=== PATIENT | female | born 1985 ===

== ENCOUNTER 2019-11-30 06:35 | Day surgery (SDC) | payer MEDICAID ==
[~2019-11-30 06:35] MED LIST: Lactated Ringers 1,000 ML IV SCH; Sodium Chloride 0.9% 10 ML SDV IV PRN; Sodium Chloride 0.9% 10 ML Syringe FLUSH PRN; Sodium Chloride 0.9% 2.5 ML Syringe FLUSH PRN
[2019-11-30] MEDS ORDERED: Propofol 200 MG/20 ML SDV ONE ×2 (06:59→08:17)
[2019-11-30] MEDS ORDERED: fentaNYL 100 MCG/2 ML SDV ONE (06:59)
[2019-11-30] MEDS ORDERED: Midazolam 1 MG/ML 2 ML SDV ONE ×2 (07:00→07:19)
[2019-11-30] MEDS ORDERED: Lidocaine 2% 5 ML SDV ONE (07:01)
[2019-11-30] MEDS ORDERED: Glycopyrrolate 0.2 MG/ML SDV ONE (07:01)
[2019-11-30] MEDS ORDERED: Midazolam 1 MG/ML 2 ML SDV IVPUSH ONE (07:14)
--- NOTE | 2019-11-30 07:29 | PCM.PREANE ---
Preanesthetic Assessment - Anesthesia/Transfusion/Family Hx Anesthesia History: Prior Anesthesia Without Reaction Other Type of Anesthesia Reaction Comment: denies any problems with anesthesia Family History of Anesthesia Reaction: No Intubation History: Unknown - Review of Systems General: No Symptoms Pulmonary: No Symptoms Cardiovascular: No Symptoms Gastrointestinal: Abdominal Pain Neurological: No Symptoms Other: Reports: None - Physical Assessment Height: 5 ft 4 in Weight: 65.317 kg ASA Class: 2 Mental Status: Alert & Oriented x3 Airway Class: Mallampati = 2 Dentition: Reports: Normal Dentition Thyro-Mental Finger Breadths: 3 Mouth Opening Finger Breadths: 3 ROM/Head Extension: Full Lungs: Clear to Auscultation, Normal Respiratory Effort Cardiovascular: Regular Rate, Regular Rhythm - Lab Values: Laboratory Last Values Urine HCG, Qual NEGATIVE (NEGATIVE) 11/30/19 06:45 - Allergies Allergies/Adverse Reactions: Allergies Allergy/AdvReac Type Severity Reaction Status Date / Time Penicillins Allergy Vomiting Verified 11/23/19 09:38 - Blood Blood Available: No - Anesthesia Plan Pre-Op Medication Ordered: None - Acknowledgements Anesthesia Type Planned: MAC Pt an Appropriate Candidate for the Planned Anesthesia: Yes Alternatives and Risks of Anesthesia Discussed w Pt/Guardian: Yes Pt/Guardian Understands and Agrees with Anesthesia Plan: Yes PreAnesthesia Questionnaire HEENT History: Reports: Other (See Below) Other HEENT History: states is legally blind, does not wear glasses Cardiovascular History: Reports: None Respiratory History: Reports: Asthma (mild/moderate) Gastrointestinal History: Reports: Gastritis, GERD Genitourinary History: Reports: Renal Calculus 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: Musculoskeletal History: Reports: Arthritis, Fibromyalgia Other Musculoskeletal History: fx left wrist Neurological History: Reports: Migraines, TIA Other Neuro History: TIA at age 27- droopy face, weak left arm,speech problems,balance problems- all lasted 2 minutes followed by 2 day migrain (severe) Psychiatric History: Reports: Anxiety, Depression (major), PTSD Endocrine/Metabolic History: Reports: None Hematologic History: Reports: None Immunologic History: Reports: None Oncologic (Cancer) History: Reports: None Dermatologic History: Reports: Cellulitis - Past Surgical History Head Surgeries/Procedures: Reports: None HEENT Surgical History: Reports: Adenoidectomy, Naso-Sinus Surgery Cardiovascular Surgical History: Reports: None Respiratory Surgical History: Reports: None GI Surgical History: Reports: EGD (x2, last one 2 years ago) Female Surgical History: Reports: None Endocrine Surgical History: Reports: None Neurological Surgical History: Reports: None Musculoskeletal Surgical History: Reports: None Oncologic Surgical History: Reports: None Dermatological Surgical History: Reports: None - SUBSTANCE USE Smoking Status *Q: Current Some Day Smoker Tobacco Use Within Last Twelve Months: Cigarettes Days Per Week of Alcohol Use: 7 Number of Drinks Per Day: 8 Total Drinks Per Week: 56 Recreational Drug Type: Reports: Marijuana/Hashish, Other (see below) (h/o pain killer abuse and ETOH abuse, did not drink since wednesday- very anxious with high blood pressure) - HOME MEDS Home Medications: Home Meds Albuterol [Proventil HFA] 1 - 2 puff INH Q4HR PRN 04/25/14 [History] Albuterol [Proventil Neb Soln] 1 dose IH ASDIRECTED PRN 04/25/14 [History] Fluticasone/Salmeterol [Advair 250-50] 1 puff INH BID PRN 04/25/14 [History] Omeprazole [Prilosec] 20 mg PO DAILY 04/25/14 [History] Ondansetron [Zofran] 4 mg PO TID PRN 04/25/14 [History] Copper [Paragard T 380-A] 1 device VAG ONETIME 11/23/19 [History] Fluticasone/Salmeterol [Advair 250-50] 1 puff INH BID 11/23/19 [History] Ibuprofen 800 mg PO TID PRN 11/23/19 [History] L.acidoph,Paracasei, B.lactis [Probiotic] 1 tab PO DAILY 11/23/19 [History] Potassium Chloride 10 meq PO DAILY 11/23/19 [History] - CURRENT (IN HOUSE) MEDS Current Meds: Current Medications Lactated Ringer's (Ringers, Lactated) 1,000 mls @ 125 mls/hr IV ASDIRECTED TIMO Last Admin: 11/30/19 07:00 Dose: 125 mls/hr Documented by: Sodium Chloride (Saline Flush) 10 ml FLUSH ASDIRECTED PRN PRN Reason: Keep Vein Open Sodium Chloride (Saline Flush) 2.5 ml FLUSH ASDIRECTED PRN PRN Reason: Keep Vein Open Sodium Chloride (Saline Flush) 10 ml FLUSH ASDIRECTED PRN PRN Reason: Keep Vein Open Sodium Chloride (Saline Flush) 2.5 ml FLUSH ASDIRECTED PRN PRN Reason: Keep Vein Open Sodium Chloride (Normal Saline) 10 ml IV ASDIRECTED PRN PRN Reason: IV Use Discontinued Medications Fentanyl (Sublimaze) Confirm Administered Dose 100 mcg .ROUTE .STK-MED ONE Stop: 11/30/19 07:00 Glycopyrrolate (Robinul) Confirm Administered Dose 0.2 mg .ROUTE .STK-MED ONE Stop: 11/30/19 07:02 Lidocaine (Xylocaine-Mpf 2%) Confirm Administered Dose 5 ml .ROUTE .STK-MED ONE Stop: 11/30/19 07:02 Midazolam HCl (Versed 1 Mg/Ml) Confirm Administered Dose 2 mg .ROUTE .STK-MED ONE Stop: 11/30/19 07:01 Midazolam HCl (Versed 1 Mg/Ml) 2 mg IVPUSH ONETIME ONE Stop: 11/30/19 07:15 Midazolam HCl (Versed 1 Mg/Ml) Confirm Administered Dose 2 mg .ROUTE .STK-MED ONE Stop: 11/30/19 07:20 Propofol (Diprivan 20 Ml) Confirm Administered Dose 200 mg .ROUTE .STK-MED ONE Stop: 11/30/19 07:00
--- NOTE | 2019-11-30 08:21 | PCM.OPNOTE ---
- General Post-Op/Procedure Note Date of Surgery/Procedure: 11/30/19 Operative Procedure(s): Diagostic EGD with biopsy Findings: Hiatal hernia, gastritis Pre Op Diagnosis: History of chronic gastritis, dysphagia Post-Op Diagnosis: Hiatal hernia, chronic gastritis Anesthesia Technique: [facility] [place] Surgeon: Flori Velazquez Condition: Good
--- NOTE | 2019-11-30 08:38 | PCM.POSTAN ---
POST ANESTHESIA ASSESSMENT - MENTAL STATUS Mental Status: Alert, Oriented - VITAL SIGNS Vital Signs: Last Vital Signs Temp 36.4 C 11/30/19 06:45 Pulse 100 11/30/19 08:34 Resp 14 11/30/19 08:34 BP 128/92 H 11/30/19 08:34 Pulse Ox 95 11/30/19 08:34 - RESPIRATORY Respiratory Status: Respiratory Rate WNL, Airway Patent, O2 Saturation Stable - CARDIOVASCULAR CV Status: Pulse Rate WNL, Blood Pressure Stable - GASTROINTESTINAL GI Status: No Symptoms - PAIN Pain Score: 0 - POST OP HYDRATION Hydration Status: Adequate & Stable - OBSERVATIONS Free Text/Narrative:: No anesthesia problems
--- NOTE | 2019-11-30 09:09 | PCM48HPAN ---
Post Anesthesia Note - EVALUATION WITHIN 48HRS OF ANESTHETIC Vital Signs in Normal Range: Yes Patient Participated in Evaluation: Yes Respiratory Function Stable: Yes Airway Patent: Yes Cardiovascular Function Stable: Yes Hydration Status Stable: Yes Pain Control Satisfactory: Yes Nausea and Vomiting Control Satisfactory: Yes Mental Status Recovered: Yes Vital Signs: Last Vital Signs Temp 36.7 C 11/30/19 08:38 Pulse 97 11/30/19 08:38 Resp 97 H 11/30/19 08:38 BP 122/89 11/30/19 08:38 Pulse Ox 97 11/30/19 08:38 - COMMENTS/OBSERVATIONS Free Text/Narrative:: No anesthesia problems
--- NOTE | 2019-11-30 15:58 | OR ---
SURGEON: FLORI VELAZQUEZ MD DATE OF PROCEDURE: 11/30/2019 PREOPERATIVE DIAGNOSES: Dysphagia, history of chronic gastritis. POSTOPERATIVE DIAGNOSES: Hiatal hernia, gastritis. PROCEDURE PERFORMED: Diagnostic esophagogastroduodenoscopy with biopsy. PRIMARY SURGEON: Flori Velazquez MD ANESTHESIA: MAC. INSTRUMENT USED: Olympus endoscope. EXTENT OF EXAM: To the second portion of duodenum. PREPARATION: Good. LIMITATIONS: None. INDICATIONS FOR EXAMINATION: The patient is a 33-year-old female who presents with dysphagia. She has a history of chronic gastritis. The decision was made to proceed with a diagnostic EGD. I explained the procedure, expected perioperative course, and risks. The patient verbalized understanding and wishes to proceed. PROCEDURE IN DETAIL: The patient was brought into the endoscopy suite and placed in a beach chair position. A time-out was completed verifying the patient's name, age, date of , allergies, and procedure to be performed. Monitored anesthesia care was induced and continuous oxygen was provided via nasal cannula throughout the procedure. After adequate sedation was achieved, a well-lubricated endoscope was placed through the patient's bite block into the back of the throat and advanced under direct visualization to the level of the second portion of duodenum. This appeared normal and a photograph was taken. The scope was then straightened out and fully withdrawn while examining the color, texture, anatomy, and integrity of the mucosa of the upper GI tract. The patient's duodenum appeared normal. The scope was brought into the stomach and photograph was taken of the pylorus and GE junction. The patient was noted to have a hiatal hernia. The antral mucosa appeared somewhat reddened, consistent with her history of chronic gastritis. Biopsies were taken of the gastric antrum, body, and fundus and sent for histologic review and H. pylori testing. No evidence of peptic ulcer disease was noted. The scope was brought into the distal esophagus and a photograph was taken of the hiatal hernia and the Z-line. Overall, the Z-line appeared normal with no evidence of irregularities. The distal esophageal mucosa appeared normal as well, however, a biopsy was taken 1 cm above the Z-line and sent to pathology labeled as esophageal biopsy. The remainder of the esophageal mucosa appeared free of pathology. The scope was removed and the procedure terminated. The patient tolerated the procedure well and was transferred to the PACU in stable condition. ENDOSCOPIC DIAGNOSES: Hiatal hernia, gastritis. RECOMMENDATIONS: The patient will undergo an esophagram later this week. I will see the patient in 2 weeks to discuss her biopsy results as well as the results of the radiology test and determine any next steps in treatment. JAMISON MUNOZ /[id number]
== END 2019-11-30 09:15 | disposition home or self-care (01) ==
LOC: MW.SDS 06:35
PROVIDERS: ATTEND Surgery
DX: K29.50 Unspecified chronic gastritis without bleeding (principal); K44.9 Diaphragmatic hernia without obstruction or gangrene; J45.909 Unspecified asthma, uncomplicated; K21.9 Gastro-esophageal reflux disease without esophagitis; F41.9 Anxiety disorder, unspecified; F32.9 Major depressive disorder, single episode, unspecified; K82.4 Cholesterolosis of gallbladder; G47.00 Insomnia, unspecified; Z79.899 Other long term (current) drug therapy; Z87.891 Personal history of nicotine dependence; Z88.0 Allergy status to penicillin
CPT/HCPCS: 43239; 81025; J2001; J2250; J2704; J3010; J3490; J7120; 00731; 88305; 88312

== ENCOUNTER 2019-12-07 06:29 | Day surgery (SDC) | payer MEDICAID ==
[~2019-12-07 06:29] MED LIST changes: +Clindamycin Phosphate in D5W 50 ML ONE; +Clindamycin Phosphate in D5W 600 MG in Premix Bag 1 BAG IV ONE
[2019-12-07] MEDS ORDERED: fentaNYL 250 MCG/5 ML SDV ONE (07:05)
[2019-12-07] MEDS ORDERED: Midazolam 1 MG/ML 2 ML SDV ONE ×2 (07:05→08:35)
[2019-12-07] MEDS ORDERED: Propofol 200 MG/20 ML SDV ONE (07:05)
[2019-12-07] MEDS ORDERED: Dexamethasone 4 MG/ML 5 ML MDV ONE (07:12)
[2019-12-07] MEDS ORDERED: Ondansetron 4 MG/2 ML SDV ONE (07:12)
[2019-12-07] MEDS ORDERED: Rocuronium Bromide 50 MG/5 ML Syringe ONE (07:12)
[2019-12-07] MEDS ORDERED: Clindamycin Phosphate in D5W 600 MG in Premix Bag 1 BAG IV ONE ×2 (07:15)
[2019-12-07] MEDS ORDERED: Lactated Ringers 1,000 ML IV SCH (07:15)
[2019-12-07] MEDS ORDERED: Bupivacaine 0.5% 30 ML SDV ONE (07:23)
--- NOTE | 2019-12-07 07:25 | PCM.PREANE ---
Preanesthetic Assessment - Anesthesia/Transfusion/Family Hx Anesthesia History: Prior Anesthesia Without Reaction Other Type of Anesthesia Reaction Comment: denies any problems with anesthesia Family History of Anesthesia Reaction: No Transfusion History: No Prior Transfusion(s) Intubation History: Unknown - Review of Systems General: No Symptoms Pulmonary: No Symptoms Cardiovascular: No Symptoms Gastrointestinal: Abdominal Pain Neurological: No Symptoms Other: Reports: None - Physical Assessment Vital Signs: Last Vital Signs Temp 36.5 C 12/07/19 07:20 Pulse 78 12/07/19 07:20 Resp 18 12/07/19 07:20 BP 110/70 12/07/19 07:20 Pulse Ox 96 12/07/19 07:20 Height: 5 ft 4 in Weight: 65.317 kg ASA Class: 2 Mental Status: Alert & Oriented x3 Airway Class: Mallampati = 1 Dentition: Reports: Normal Dentition Thyro-Mental Finger Breadths: 3 Mouth Opening Finger Breadths: 3 ROM/Head Extension: Full Lungs: Clear to Auscultation, Normal Respiratory Effort Cardiovascular: Regular Rate, Regular Rhythm - Lab Values: Laboratory Last Values Urine HCG, Qual NEGATIVE (NEGATIVE) 12/07/19 06:45 - Allergies Allergies/Adverse Reactions: Allergies Allergy/AdvReac Type Severity Reaction Status Date / Time Penicillins Allergy Vomiting Verified 12/07/19 07:11 - Blood Blood Available: No - Anesthesia Plan Pre-Op Medication Ordered: None - Acknowledgements Anesthesia Type Planned: General Anesthesia Pt an Appropriate Candidate for the Planned Anesthesia: Yes Alternatives and Risks of Anesthesia Discussed w Pt/Guardian: Yes Pt/Guardian Understands and Agrees with Anesthesia Plan: Yes PreAnesthesia Questionnaire HEENT History: Reports: Other (See Below) Other HEENT History: states is legally blind, does not wear glasses Cardiovascular History: Reports: None Respiratory History: Reports: Asthma Gastrointestinal History: Reports: Gastritis, GERD Genitourinary History: Reports: Renal Calculus 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: Musculoskeletal History: Reports: Arthritis, Fibromyalgia Other Musculoskeletal History: fx left wrist Neurological History: Reports: Migraines, TIA Other Neuro History: TIA at age 27- droopy face, weak left arm,speech problems,balance problems- all lasted 2 minutes followed by 2 day migrain (severe) Psychiatric History: Reports: Anxiety, Depression, PTSD Endocrine/Metabolic History: Reports: None Hematologic History: Reports: None Immunologic History: Reports: None Oncologic (Cancer) History: Reports: None Dermatologic History: Reports: Cellulitis - Past Surgical History Head Surgeries/Procedures: Reports: None HEENT Surgical History: Reports: Adenoidectomy, Naso-Sinus Surgery Cardiovascular Surgical History: Reports: None Respiratory Surgical History: Reports: None GI Surgical History: Reports: EGD (x2, last one last week here) Endocrine Surgical History: Reports: None Neurological Surgical History: Reports: None Musculoskeletal Surgical History: Reports: None Oncologic Surgical History: Reports: None Dermatological Surgical History: Reports: None - SUBSTANCE USE Smoking Status *Q: Current Some Day Smoker Tobacco Use Within Last Twelve Months: Cigarettes Days Per Week of Alcohol Use: 7 Number of Drinks Per Day: 8 Total Drinks Per Week: 56 Recreational Drug Type: Reports: Marijuana/Hashish - HOME MEDS Home Medications: Home Meds Albuterol [Proventil HFA] 1 - 2 puff INH Q4HR PRN 04/25/14 [History] Albuterol [Proventil Neb Soln] 1 dose IH ASDIRECTED PRN 04/25/14 [History] Fluticasone/Salmeterol [Advair 250-50] 1 puff INH BID 04/25/14 [History] Omeprazole [Prilosec] 20 mg PO DAILY 04/25/14 [History] Ondansetron [Zofran] 4 mg PO TID PRN 04/25/14 [History] Copper [Paragard T 380-A] 1 device VAG ONETIME 11/23/19 [History] Ibuprofen 800 mg PO TID PRN 11/23/19 [History] L.acidoph,Paracasei, B.lactis [Probiotic] 1 tab PO DAILY 11/23/19 [History] Potassium Chloride 10 meq PO DAILY 11/23/19 [History] Patient's Own Medication [Ptom] 1 each INH ASDIRECTED PRN 12/07/19 [History] - CURRENT (IN HOUSE) MEDS Current Meds: Current Medications Clindamycin Phosphate 600 mg/ (Premix) 50 mls @ 100 mls/hr IV ONETIME ONE Stop: 12/07/19 07:44 Lactated Ringer's (Ringers, Lactated) 1,000 mls @ 125 mls/hr IV ASDIRECTED TIMO Last Admin: 12/07/19 07:18 Dose: 125 mls/hr Documented by: Sodium Chloride (Normal Saline) 10 ml IV ASDIRECTED PRN PRN Reason: IV Use Sodium Chloride (Saline Flush) 10 ml FLUSH ASDIRECTED PRN PRN Reason: Keep Vein Open Sodium Chloride (Saline Flush) 2.5 ml FLUSH ASDIRECTED PRN PRN Reason: Keep Vein Open Discontinued Medications Dexamethasone (Dexamethasone) Confirm Administered Dose 20 mg .ROUTE .STK-MED O NE Stop: 12/07/19 07:13 Fentanyl (Sublimaze) Confirm Administered Dose 250 mcg .ROUTE .STK-MED ONE Stop: 12/07/19 07:06 Clindamycin Phosphate 600 mg/ (Premix) 50 mls @ 100 mls/hr IV ONETIME ONE Stop: 12/03/19 23:52 Clindamycin Phosphate (Cleocin In D5w) Confirm Administered Dose 50 mls @ as directed .ROUTE .STK-MED ONE Stop: 12/07/19 06:27 Midazolam HCl (Versed 1 Mg/Ml) Confirm Administered Dose 2 mg .ROUTE .STK-MED ONE Stop: 12/07/19 07:06 Ondansetron HCl (Zofran) Confirm Administered Dose 4 mg .ROUTE .STK-MED ONE Stop: 12/07/19 07:13 Propofol (Diprivan 20 Ml) Confirm Administered Dose 400 mg .ROUTE .STK-MED ONE Stop: 12/07/19 07:06 Rocuronium Ewing (Rocuronium Ewing) Confirm Administered Dose 50 mg .ROUTE .STK-MED ONE Stop: 12/07/19 07:13
[2019-12-07] MEDS ORDERED: Ketamine 500 mg/10 ML MDV ONE (08:35)
[2019-12-07] MEDS ORDERED: HYDROmorphone 2 MG/ML Syringe ONE (08:48)
[2019-12-07] MEDS ORDERED: Glycopyrrolate 0.2 MG/ML SDV ONE (09:44)
[2019-12-07] MEDS ORDERED: Ketorolac 30 MG/ML SDV ONE (09:45)
[2019-12-07] MEDS ORDERED: Acetaminophen/oxyCODONE 325-5 MG Tab PO PRN (10:06)
--- NOTE | 2019-12-07 10:13 | PCM.OPNOTE ---
- General Post-Op/Procedure Note Date of Surgery/Procedure: 12/07/19 Operative Procedure(s): Laparoscopic cholecystectomy, lysis of adhesions Findings: Adhesions of gallbladder to surrounding omentum, otherwise normal appearing gallbladder Pre Op Diagnosis: Gallbladder polyp, epigastric pain Post-Op Diagnosis: same Anesthesia Technique: General ET Tube Primary Surgeon: Flori Velazquez Pathology: gallbladder Fluid Replacement, Intraop: 1,700 Output, Urine Amount: 150 EBL in mLs: 5 Condition: Good
--- NOTE | 2019-12-07 10:53 | PCM.POSTAN ---
POST ANESTHESIA ASSESSMENT - MENTAL STATUS Mental Status: Alert, Oriented - VITAL SIGNS Vital Signs: Last Vital Signs Temp 36.2 C 12/07/19 10:04 Pulse 75 12/07/19 10:49 Resp 15 12/07/19 10:49 BP 101/68 12/07/19 10:49 Pulse Ox 94 L 12/07/19 10:49 - RESPIRATORY Respiratory Status: Respiratory Rate WNL, Airway Patent, O2 Saturation Stable - CARDIOVASCULAR CV Status: Pulse Rate WNL, Blood Pressure Stable - GASTROINTESTINAL GI Status: No Symptoms - PAIN Pain Score: 2 - POST OP HYDRATION Hydration Status: Adequate & Stable
--- NOTE | 2019-12-07 12:26 | PCM48HPAN ---
Post Anesthesia Note - EVALUATION WITHIN 48HRS OF ANESTHETIC Vital Signs in Normal Range: Yes Patient Participated in Evaluation: Yes Respiratory Function Stable: Yes Airway Patent: Yes Cardiovascular Function Stable: Yes Hydration Status Stable: Yes Pain Control Satisfactory: Yes Nausea and Vomiting Control Satisfactory: Yes Mental Status Recovered: Yes Vital Signs: Last Vital Signs Temp 36.2 C 12/07/19 10:04 Pulse 75 12/07/19 10:49 Resp 15 12/07/19 10:49 BP 101/68 12/07/19 10:49 Pulse Ox 94 L 12/07/19 10:49 - COMMENTS/OBSERVATIONS Free Text/Narrative:: No anesthesia problems
--- NOTE | 2019-12-07 16:38 | OR ---
SURGEON: FLORI MARLEY MD DATE OF PROCEDURE: 12/07/2019 PREOPERATIVE DIAGNOSIS: Gallbladder polyp. POSTOPERATIVE DIAGNOSES: Gallbladder polyp and intraabdominal adhesions. PROCEDURES PERFORMED: Laparoscopic cholecystectomy and lysis of adhesions. PRIMARY SURGEON: Flori Marley MD ANESTHESIA: General endotracheal anesthesia. FLUIDS: 1700 mL of crystalloid. ESTIMATED BLOOD LOSS: 5 mL. URINE OUTPUT: 150 mL. FINDINGS: Normal-appearing gallbladder; however, there were adhesions to the surrounding omentum. COMPLICATIONS: None. INDICATIONS: The patient is a 33-year-old female who presents with abdominal pain. Imaging several years ago showed a possible gallbladder polyp in the mid body of the gallbladder. A recent ultrasound showed the gallbladder polyps to appear slightly larger at 6 mm. The decision was made to perform a cholecystectomy. I explained the procedure. I would perform it laparoscopically, but convert to open should I be unable to perform it safely. I explained the expected perioperative course as well as the risks including bleeding, infection, or damage to surrounding structures. The patient verbalized understanding and wishes to proceed. PROCEDURE IN DETAIL: The patient was brought into the OR and placed on the OR table in supine position. A time-out was completed, verifying the patient's name, age, date of , allergies, and procedure to be performed. General endotracheal anesthesia was induced. The left arm was tucked to the patient's side and a Grant catheter placed. The abdomen was prepped and draped in usual standard fashion. The infraumbilical fold was anesthetized with 0.5% Marcaine plain. An 11 blade was used to make an incision along the infraumbilical fold. Cautery was used to dissect down into the level of the subcutaneous fat. I bluntly dissected down to the fascia. The fascia was elevated with Alea's and incised sharply with curved Rayo scissors. The posterior rectus sheath and peritoneum were grasped with hemostats and incised sharply with curved Rayo scissors. On entering, the abdomen was palpated digitally. Stay sutures were placed on either side of the fascia using 0 Vicryl suture. A 12 mm Angelika trocar was inserted in the abdomen and the abdomen was insufflated. I inserted a 5-mm 30- degree scope and inspected the area underneath my initial trocar placement. No damage to surrounding structures was noted. The patient was placed into reverse Trendelenburg position and air-planed slightly to the left. 5 mm trocars were placed in the following locations under direct visualization; one in the epigastric area, one in the right flank, and one 2 fingerbreadths below the right subcostal margin in the midclavicular line. The dome of the gallbladder was grasped. I noted there to be adhesions of the anterior gallbladder wall to the surrounding omentum. These were taken down using blunt dissection and hook cautery. The infundibulum was grasped, and I began my dissection along the cystic duct and artery. I could clearly see my right hepatic artery coming up into the field. This was gently swept down. I then dissected out my cystic duct and artery. The node of Calot was noted. I dissected one-third of the way up the cystic plate. Once my critical view was achieved, I doubly clipped and ligated my cystic duct and artery. Using a hook cautery, I then took down the remainder of the attachments of the gallbladder to the gallbladder fossa. The gallbladder was then placed in an Endo Catch bag and removed through the infraumbilical port site. I reinserted my trocar and inspected my operative field. It was hemostatic, and there was no evidence of bile leakage. My clips appeared to be in good position. The 5 mm trocars were removed under direct visualization, and the abdomen allowed to desufflate. The 12 mm trocar was removed as well. The fascia at the infraumbilical port site was closed with interrupted 0 Vicryl sutures. The subcutaneous fat layer was closed with interrupted 3-0 Vicryl sutures. The skin was closed with a running 4-0 Monocryl stitch. Interrupted 4-0 Monocryl sutures were used to close the 5 mm trocar sites. Steri-Strips and sterile dressings were applied. The patient tolerated the procedure well and was transferred to the PACU in stable condition. All counts were complete and correct at the end of the case. JAMISON MUNOZ /[id number]
== END 2019-12-07 13:05 | disposition home or self-care (01) ==
LOC: MW.SDS 06:29
PROVIDERS: ATTEND Surgery
DX: K81.1 Chronic cholecystitis (principal); K82.8 Other specified diseases of gallbladder; K29.50 Unspecified chronic gastritis without bleeding; K21.9 Gastro-esophageal reflux disease without esophagitis; F33.2 Major depressive disorder, recurrent severe without psychotic features; J45.909 Unspecified asthma, uncomplicated; F41.9 Anxiety disorder, unspecified; G47.00 Insomnia, unspecified; Z88.0 Allergy status to penicillin; Z79.51 Long term (current) use of inhaled steroids; Z79.899 Other long term (current) drug therapy; Z87.891 Personal history of nicotine dependence
CPT/HCPCS: 47562; 81025; J1100; J1170; J1885; J2250; J2405; J2704; J3010; J3490; J7120; 88304

== ENCOUNTER 2021-02-10 08:58 | Emergency (ER) | payer MEDICAID ==
[2021-02-10] MEDS ORDERED: Ondansetron 4 MG/2 ML SDV IVPUSH ONE (09:09)
[2021-02-10] MEDS ORDERED: Dextrose 5%-Lactated Ringers 1,000 ML IV SCH ×2 (10:00→14:30)
[2021-02-10 10:09] LABS: BLOOD UREA NITROGEN,BUN 4 mg/dL (7.0-18.0); CARBON DIOXIDE,CO2 25.8 mmol/L (21.0-32.0); CHLORIDE,CL 101 mmol/L (98-107); GLUCOSE RANDOM 107 mg/dL (74-106); LIPASE 48 U/L (73-393); POTASSIUM,K 2.7 mmol/L (3.5-5.1); SODIUM,NA 142 mmol/L (136-145)
[2021-02-10] MEDS ORDERED: Alum Hydrox/Mag Hydrox/Simeth 15 ML, Lidocaine 2% 5 ML PO ONE ×2 (10:12)
[2021-02-10] MEDS ORDERED: Promethazine 25 MG Tab PO STA (13:35)
[2021-02-10] MEDS ORDERED: Potassium Chloride 10% 20 MEQ/15 ML Soln 30 ML UD Cup PO ONE (13:43)
--- NOTE | 2021-02-10 13:44 | EDM.PDOC ---
ED HPI GENERAL MEDICAL PROBLEM - General Chief Complaint: Gastrointestinal Problem Stated Complaint: 9 DAYS CANT KEEP ANYTHING DOWN Time Seen by Provider: 02/10/21 09:31 - History of Present Illness INITIAL COMMENTS - FREE TEXT/NARRATIVE: CHIEF COMPLAINT(S): Vomiting HISTORY OF PRESENT ILLNESS: This is a 35-year-old woman without any significant past medical history who comes to the emergency department with a chief complain t of vomiting. The patient states that off and on for the last 9 to 10 days she has been experiencing intermittent crampy abdominal pain which she rates as 4 out of 10 and burning. She states is located in the left upper quadrant. She denies any melena, hematochezia, hematemesis or bilious emesis. There is no radiation of the pain. She states that she has been taking Zofran at home without any relief. She denies any exacerbating or relieving factors. She denies any chest pain, shortness of breath, recent travel, recent surgery or prior history of DVT or PE. She states this all began after the Pfizer shot REVIEW OF SYSTEMS: Constitutional: Denies fever, chills. Eyes: Denies eye pain Ears, Nose, Mouth, & Throat: Denies earache Cardiovascular: Denies chest pain Respiratory: Denies shortness of breath Gastrointestinal: Positive for crampy abdominal pain, nausea, vomiting. Denies diarrhea, hematochezia, hematemesis, bilious emesis Genitourinary: Denies hematuria Skin:Denies a rash MSK: Denies joint pain Neurological: Denies blurred vision Psychiatric: Denies depression PAST MEDICAL HISTORY: As per history of present illness and as reviewed below otherwise noncontributory. SURGICAL HISTORY: As per history of present illness and as reviewed below otherwise noncontributory. SOCIAL HISTORY: As per history of present illness and as reviewed below otherwise noncontributory. FAMILY HISTORY: As per history of present illness and as reviewed below otherwise noncontributory. EXAMINATION OF ORGAN SYSTEMS/BODY AREAS: Constitutional: Blood pressure is 124/92, heart rate 103, respiratory rate 18 with an oxygen saturation 95% on room air. Temperature 35.8 General: Well-appearing young woman who is in no acute distress Psychiatric: Appropriate mood and affect. Eyes: No scleral icterus or conjunctival erythema ENMT: Moist mucous membranes. No pharyngeal erythema Cardiovascular: Regular, rate, and rhythm. No gallops, murmurs, or rubs. Bilateral upper extremity pulses symmetric and intact. No peripheral edema. No JVD. Respiratory: Lungs clear to auscultation bilaterally. No wheezes, rales, or rhonchi. Gastrointestinal: Soft, nondistended, mild tenderness to palpation the left upper quadrant. No rebound or guarding. Negative Bowers's and McBurney's. Normoactive bowel sounds Genitourinary: No suprapubic tenderness Musculoskeletal: Normal range of motion. Skin: No lesions or abrasions. Neurological: Alert, GCS 15 MEDICAL DECISION MAKING AND COURSE IN THE ED WITH INTERPRETATION/REVIEW OF DIAGNOSTIC STUDIES: This is a 35-year-old woman with a out any significant past medical history who presents to the emergency department with 10 days of reported inability to tolerate p.o. with vomiting and crampy abdominal pain. At this time we will provide the patient with a GI cocktail, Zofran for nausea and 1 L of D5 LR. Will obtain labs including CBC, CMP, Covid, lipase, urinalysis. We did obtain an EKG to evaluate for prolonged QT. At this time the patient's abdomen is nonsurgical therefore we will hold off on imaging at this time. Laboratory: CBC is unremarkable. CMP reveals hypokalemia at 2.7, hyperglycemia at 107, hypocalcemia at 8.0, AST of 60, alkaline phosphatase of 161. Lipase is normal. Urinalysis is negative except for ketonuria. Covid is negative. On reevaluation the patient was able to tolerate mild amount of fluid. However she states that she was still nauseous. We will provide the patient with Phenergan and reevaluate. We will provide her with 1 additional D5 LR. On reevaluation the patient was able to tolerate p.o. At this time the patient was questing to be sent home. At this time I did discuss strict return precautions with the patient. She was amenable to discharge and had no further questions. DISPOSITION: The patient was discharged home in stable condition. The patient will follow up with primary care physician in 3 to 5 days CONDITION: Fair PROCEDURES: None FINAL IMPRESSION(S)/DIAGNOSES: 1. Acute vomiting 2. Acute abdominal pain Sajan Dumont M.D. abdomen Pain Score (Numeric/FACES): 4 - Related Data Allergies Allergy/AdvReac Type Severity Reaction Status Date / Time Penicillins Allergy Vomiting Verified 02/10/21 09:13 Home Meds: Home Meds Albuterol [Proventil HFA] 1 - 2 puff INH Q4HR PRN 04/25/14 [History] Fluticasone/Salmeterol [Advair 250-50] 1 puff INH BID 04/25/14 [History] Omeprazole [Prilosec] 20 mg PO DAILY 04/25/14 [History] Ondansetron [Zofran] 4 mg PO TID PRN 04/25/14 [History] Copper [Paragard T 380-A] 1 device VAG ONETIME 11/23/19 [History] Ibuprofen 800 mg PO TID PRN 11/23/19 [History] Patient's Own Medication [Ptom] 1 each INH ASDIRECTED PRN 12/07/19 [History] Prazosin HCl [Prazosin] 2 mg PO DAILY 02/10/21 [History] busPIRone [Buspar] 2.5 mg PO DAILY 02/10/21 [History] Past Medical History HEENT History: Reports: Other (See Below) Other HEENT History: states is legally blind, does not wear glasses Cardiovascular History: Reports: None Respiratory History: Reports: Asthma Gastrointestinal History: Reports: Gastritis, GERD Genitourinary History: Reports: Renal Calculus [employer]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: Musculoskeletal History: Reports: Arthritis, Fibromyalgia Other Musculoskeletal History: fx left wrist Neurological History: Reports: Migraines, TIA Other Neuro History: TIA at age 27- droopy face, weak left arm,speech problems,balance problems- all lasted 2 minutes followed by 2 day migrain (severe) Psychiatric History: Reports: Anxiety, Depression, PTSD Endocrine/Metabolic History: Reports: None Hematologic History: Reports: None Immunologic History: Reports: None Oncologic (Cancer) History: Reports: None Dermatologic History: Reports: Cellulitis - Infectious Disease History Infectious Disease History: Reports: Chicken Pox - Past Surgical History Head Surgeries/Procedures: Reports: None HEENT Surgical History: Reports: Adenoidectomy, Naso-Sinus Surgery Cardiovascular Surgical History: Reports: None Respiratory Surgical History: Reports: None GI Surgical History: Reports: Cholecystectomy, EGD Female Surgical History: Reports: None Endocrine Surgical History: Reports: None Neurological Surgical History: Reports: None Musculoskeletal Surgical History: Reports: None Oncologic Surgical History: Reports: None Dermatological Surgical History: Reports: None Social & Family History - Family History Family Medical History: No Pertinent Family History - Tobacco Use Tobacco Use Status *Q: Never Tobacco User - Alcohol Use Days Per Week of Alcohol Use: 7 Number of Drinks Per Day: 4 Total Drinks Per Week: 28 - Recreational Drug Use Recreational Drug Use: Yes Recreational Drug Type: Reports: Marijuana/Hashish ED ROS GENERAL - Review of Systems Review Of Systems: See Below ED EXAM, GENERAL - Physical Exam Exam: See Below Course - Vital Signs Last Recorded V/S: Last Vital Signs Temp 36.1 C 02/10/21 16:45 Pulse 106 H 02/10/21 16:45 Resp 16 02/10/21 16:45 BP 114/80 02/10/21 16:45 Pulse Ox 95 02/10/21 16:45 - Orders/Labs/Meds Labs: Laboratory Tests 02/10/21 02/10/21 02/10/21 Range/Units 09:19 09:19 09:27 WBC 5.49 (4.0-11.0) K/uL RBC 4.74 (4.30-5.90) M/uL Hgb 15.6 (12.0-16.0) g/dL Hct 44.6 (36.0-46.0) % MCV 94.1 (80.0-98.0) fL MCH 32.9 H (27.0-32.0) pg MCHC 35.0 (31.0-37.0) g/dL RDW Std Deviation 45.9 (28.0-62.0) fl RDW Coeff of Kelin 13 (11.0-15.0) % Plt Count 315 (150-400) K/uL MPV 9.10 (7.40-12.00) fL Neut % (Auto) 43.2 L (48.0-80.0) % Lymph % (Auto) 46.8 H (16.0-40.0) % [place]ink[place] % (Auto) 7.3 (0.0-15.0) % Eos % (Auto) 2.0 (0.0-7.0) % Baso % (Auto) 0.7 (0.0-1.5) % Neut # (Auto) 2.4 (1.4-5.7) K/uL Lymph # (Auto) 2.6 H (0.6-2.4) K/uL [place]ink[place] # (Auto) 0.4 (0.0-0.8) K/uL Eos # (Auto) 0.1 (0.0-0.7) K/uL Baso # (Auto) 0.0 (0.0-0.1) K/uL Nucleated RBC % 0.0 /100WBC Nucleated RBCs # 0 K/uL Sodium (136-145) mmol/L Potassium (3.5-5.1) mmol/L Chloride (98-107) mmol/L Carbon Dioxide (21.0-32.0) mmol/L BUN (7.0-18.0) mg/dL Creatinine (0.6-1.0) mg/dL Est Cr Clr Drug Dosing mL/min Estimated GFR (MDRD) ml/min Glucose (74-106) mg/dL Calcium (8.5-10.1) mg/dL Total Bilirubin (0.2-1.0) mg/dL AST (15-37) IU/L ALT (14-63) IU/L Alkaline Phosphatase (46-116) U/L Total Protein (6.4-8.2) g/dL Albumin (3.4-5.0) g/dL Globulin (2.6-4.0) g/dL Albumin/Globulin Ratio (0.9-1.6) Lipase (73-393) U/L Urine Color YELLOW Urine Appearance CLOUDY Urine pH 6.0 (5.0-8.0) Ur Specific [place] >= 1.030 (1.001-1.035) Urine Protein NEGATIVE (NEGATIVE) mg/dL Urine Glucose (UA) NEGATIVE (NEGATIVE) mg/dL Urine Ketones 15 H (NEGATIVE) mg/dL Urine Occult Blood TRACE-INTACT H (NEGATIVE) Urine Nitrite NEGATIVE (NEGATIVE) Urine Bilirubin NEGATIVE (NEGATIVE) Urine Urobilinogen 0.2 (<2.0) EU/dL Ur Leukocyte Esterase NEGATIVE (NEGATIVE) Urine RBC NONE SEEN (0-2/HPF) Urine WBC 0-1 (0-5/HPF) Ur Epithelial Cells OCCASIONAL (NONE-FEW) Amorphous Sediment MODERATE (NEGATIVE) Urine Bacteria 2+ H (NEGATIVE) Urine Mucus LIGHT (NONE-MOD) Urine HCG, Qual NEGATIVE (NEGATIVE) SARS-CoV-2 RNA (DEEPTI) (NEGATIVE) 02/10/21 02/10/21 Range/Units 09:27 15:03 WBC (4.0-11.0) K/uL RBC (4.30-5.90) M/uL Hgb (12.0-16.0) g/dL Hct (36.0-46.0) % MCV (80.0-98.0) fL MCH (27.0-32.0) pg MCHC (31.0-37.0) g/dL RDW Std Deviation (28.0-62.0) fl RDW Coeff of Kelin (11.0-15.0) % Plt Count (150-400) K/uL MPV (7.40-12.00) fL Neut % (Auto) (48.0-80.0) % Lymph % (Auto) (16.0-40.0) % Wink[place] % (Auto) (0.0-15.0) % Eos % (Auto) (0.0-7.0) % Baso % (Auto) (0.0-1.5) % Neut # (Auto) (1.4-5.7) K/uL Lymph # (Auto) (0.6-2.4) K/uL [place]ink[place] # (Auto) (0.0-0.8) K/uL Eos # (Auto) (0.0-0.7) K/uL Baso # (Auto) (0.0-0.1) K/uL Nucleated RBC % /100WBC Nucleated RBCs # K/uL Sodium 142 (136-145) mmol/L Potassium 2.7 L (3.5-5.1) mmol/L Chloride 101 (98-107) mmol/L Carbon Dioxide 25.8 (21.0-32.0) mmol/L BUN 4 L (7.0-18.0) mg/dL Creatinine 0.8 (0.6-1.0) mg/dL Est Cr Clr Drug Dosing 84.76 mL/min Estimated GFR (MDRD) > 60.0 ml/min Glucose 107 H (74-106) mg/dL Calcium 8.0 L (8.5-10.1) mg/dL Total Bilirubin 0.6 (0.2-1.0) mg/dL AST 62 H (15-37) IU/L ALT 57 (14-63) IU/L Alkaline Phosphatase 161 H (46-116) U/L Total Protein 8.0 (6.4-8.2) g/dL Albumin 3.6 (3.4-5.0) g/dL Globulin 4.4 H (2.6-4.0) g/dL Albumin/Globulin Ratio 0.8 L (0.9-1.6) Lipase 48 L (73-393) U/L Urine Color Urine Appearance Urine pH (5.0-8.0) Ur Specific [place] (1.001-1.035) Urine Protein (NEGATIVE) mg/dL Urine Glucose (UA) (NEGATIVE) mg/dL Urine Ketones (NEGATIVE) mg/dL Urine Occult Blood (NEGATIVE) Urine Nitrite (NEGATIVE) Urine Bilirubin (NEGATIVE) Urine Urobilinogen (<2.0) EU/dL Ur Leukocyte Esterase (NEGATIVE) Urine RBC (0-2/HPF) Urine WBC (0-5/HPF) Ur Epithelial Cells (NONE-FEW) Amorphous Sediment (NEGATIVE) Urine Bacteria (NEGATIVE) Urine Mucus (NONE-MOD) Urine HCG, Qual (NEGATIVE) SARS-CoV-2 RNA (DEEPTI) NEGATIVE (NEGATIVE) Meds: Medications Discontinued Medications Generic Name Dose Route Start Last Admin Trade Name Freq PRN Reason Stop Dose Admin Al Hydroxide/Mg Hydroxide 15 0 ml 02/10/21 10:12 02/10/21 10:28 ml/ Lidocaine HCl 5 ml PO 02/10/21 10:13 1 each ONETIME ONE Administration Dextrose/Lactated Ringer's 1,000 mls @ 999 mls/hr 02/10/21 10:00 02/10/21 10:10 Dextrose 5%-Lactated Ringers IV 999 mls/hr ASDIRECTED TIMO Administration Dextrose/Lactated Ringer's 1,000 mls @ 999 mls/hr 02/10/21 14:30 02/10/21 15:06 Dextrose 5%-Lactated Ringers IV 999 mls/hr ASDIRECTED TIMO Administration Ondansetron HCl 4 mg 02/10/21 09:09 02/10/21 09:27 Ondansetron 4 Mg/2 Ml Sdv IVPUSH 02/10/21 09:10 4 mg ONETIME ONE Administration Potassium Chloride 40 meq 02/10/21 13:43 02/10/21 13:51 Potassium Chloride 10% 20 Meq/15 Ml Soln 30 Ml Ud Cup PO 02/10/21 13:44 40 meq ONETIME ONE Administration Promethazine HCl 25 mg 02/10/21 13:35 02/10/21 13:51 Promethazine 25 Mg Tab PO 02/10/21 13:36 25 mg ONETIME STA Administration Departure - Departure Time of Disposition: 16:27 Disposition: Home, Self-Care 01 Condition: Fair Clinical Impression: Vomiting - Discharge Information *PRESCRIPTION DRUG MONITORING PROGRAM REVIEWED*: No *COPY OF PRESCRIPTION DRUG MONITORING REPORT IN PATIENT AGATA: No Instructions: Nausea and Vomiting, Adult, [id number], Dehydration, Adult, [id number] Referrals: Saul Klein MD [Primary Care Provider] - Forms: ED Department Discharge Additional Instructions: You were evaluated today on an emergent basis. At this time your lab work was normal. At this time I do recommend that you continue with fluid hydration at home and start with a bland diet. If you have any worsening pain, inability to eat or drink I would like you to return to the emergency department. Otherwise please use Phenergan suppository as needed for nausea. As discussed I do not want you to take Phenergan at the same time that you take your Zofran. Please use one or the other. Please follow-up with your primary care physician within 3 to 5 days. [facility] [address] [place] [address] [place] [address] The patient is informed of any results of their evaluation and diagnostic workup and all questions are answered. They are given discharge instructions and return precautions. The patient is stable for discharge. The patient states they understand and agree with the plan and that they will return if their symptoms get worse or if they have any new concerns. The following information is given to patients seen in the emergency department who are being discharged to home. This information is to outline your options for follow-up care. We provide all patients seen in our emergency department with a follow-up referral. The need for follow-up, as well as the timing and circumstances, are variable depending upon the specifics of your emergency department visit. If you don't have a primary care physician on staff, we will provide you with a referral. We always advise you to contact your personal physician following an emergency department visit to inform them of the circumstance of the visit and for follow-up with them and/or the need for any referrals to a consulting specialist. The emergency department will also refer you to a specialist when appropriate. This referral assures that you have the opportunity for follow-up care with a specialist. All of these measure are taken in an effort to provide you with optimal care, which includes your follow-up. Under all circumstances we always encourage you to contact your private physician who remains a resource for coordinating your care. When calling for follow-up care, please make the office aware that this follow-up is from your recent emergency room visit. If for any reason you are refused follow-up, please contact the [facility] Emergency Department at and asked to speak to the emergency department charge nurse. Sepsis Event Note (ED) - Evaluation Sepsis Screening Result: No Definite Risk
--- NOTE | 2021-02-10 13:44 | PCM.EKG ---
#1 Interpretation EKG Date: 02/10/21 Time: 13:24 Rhythm: NSR Rate (Beats/Min): 89 [place]: Normal P-Wave: Present QRS: Normal ST-T: Normal QT: Normal Comparison: NA - No Prior EKG EKG Interpretation Comments: Sinus Rhythm
== END 2021-02-10 16:50 | disposition home or self-care (01) ==
LOC: MW.ED 08:58
DX: R10.12 Left upper quadrant pain (principal); R11.10 Vomiting, unspecified; J45.909 Unspecified asthma, uncomplicated; K21.9 Gastro-esophageal reflux disease without esophagitis; Z86.73 Personal history of transient ischemic attack (TIA), and cerebral infarction without residual deficits; Z88.0 Allergy status to penicillin; Z79.899 Other long term (current) drug therapy; Z20.822 Contact with and (suspected) exposure to COVID-19
CPT/HCPCS: 36415; 80053; 81001; 81025; 83690; 85025; 87635; 93005; 96374; 99284; A9270; J2405; J7121; 99283; U0002